=== PATIENT | male | born 1965 | race Caucasian/White ===

== ENCOUNTER → 2016-04-22 | Outpatient (CLI) | payer BC | LOC: MW.CHRC 16:32 | PROVIDERS: ATTEND Family Medicine | DX: R68.82 Decreased libido (principal) | CPT/HCPCS: 36415; 84402; 84403 ==

== ENCOUNTER 2016-04-29 21:48 | Emergency (ER) | payer BC ==
--- NOTE | 2016-04-29 22:06 | EDM.PDOC ---
ED HPI Behavioral Health - General Stated Complaint: UNKNOWN Source of Information: Reports: Patient Exam Limitations: Reports: No limitations - History of Present Illness INITIAL COMMENTS - FREE TEXT/NARRATIVE: 5History of present illness: [] Review of systems: 51-year-old male with a history of suspected bipolar disorder now brought in by with police accompaniment for evaluation of his mental health. Per [employer] called them and stated patient was "tearing up the house "and had been "drinking all day. " When police arrived the patient was alert communicative and cooperative there is no evidence of violence or damage. Patient is very clear that he had not been drinking but was willing to consent to a breathalyzer approve it. Per police alcohol level was 0.01 1/80th of the legal limit for intoxication. Patient is continued to be communicative and cooperative w no evidence of psychosis /suicidal ideation /homicidal ideation/ self injury/ self-destructive behavior /or any behavior threatening to others. Patient is currently asymptomatic HISTORY AND PHYSICAL: As per history of present illness and below otherwise all systems reviewed and negative. Past medical history: As per history of present illness and as reviewed below otherwise noncontributory. Surgical history: As per history of present illness and as reviewed below otherwise noncontributory. Social history: No reported history of drug or alcohol abuse. Family history: As per history of present illness and as reviewed below otherwise noncontributory. Physical exam: HEENT: Atraumatic, normocephalic, pupils reactive, negative for conjunctival pallor or scleral icterus, mucous membranes moist, throat clear, neck supple, nontender, trachea midline. Lungs: Clear to auscultation, breath sounds equal bilaterally, chest nontender. Heart: S1S2, regular, negative for clicks, rubs, or JVD. Abdomen: Soft, nondistended, nontender. Negative for masses or hepatosplenomegaly. Negative for costovertebral tenderness. Pelvis: Stable nontender. Genitourinary: Deferred. Rectal: Deferred. Extremities: Atraumatic, negative for cords or calf pain. Neurovascular unremarkable. Neuro: Awake, alert, oriented. Cranial nerves II through XII unremarkable. Cerebellum unremarkable. Motor and sensory unremarkable throughout. Exam nonfocal. Diagnostics: [] Therapeutics: [] Impression: [] Plan: [] Definitive disposition and diagnosis as appropriate pending reevaluation and review of above. - Related Data Allergies Allergy/AdvReac Type Severity Reaction Status Date / Time No Known Allergies Allergy Verified 04/29/16 22:18 Home Medications: Home Meds Venlafaxine [Effexor XR] 150 mg PO DAILY 04/29/16 [History] buPROPion [Wellbutrin] 100 mg PO DAILY 04/29/16 [History] no pain Pain Score (Numeric/FACES): 0 ED ROS GENERAL - Review of Systems Review Of Systems: See Below (Per history of present illness) ED EXAM, BEHAVIORAL HEALTH - Physical Exam Exam: See Below (Per history of present illness) COURSE, BEHAVIORAL HEALTH COMP - Course Vital Signs: Last Vital Signs Temp 36.8 C 04/29/16 22:06 Pulse 90 04/29/16 22:49 Resp 16 04/29/16 22:49 BP 137/81 04/29/16 22:49 Pulse Ox 98 04/29/16 22:49 Orders, Labs, Meds: Medications Discontinued Medications Generic Name Dose Route Start Last Admin Trade Name Carmine PRN Reason Stop Dose Admin Alprazolam 1 mg 04/29/16 22:26 04/29/16 22:45 Xanax PO 04/29/16 22:27 1 mg ONETIME ONE Administration Re-Assessment/Re-Exam: Patient has a history of depression however he has no suicidal ideation homicidal ideation and he does not represent an immediate danger to self or others in any way. Apparently per patient there is significant marital discord between patient and his and he feels she was not being forthright to claim he had been "drinking all day. "His statement was consistent with his negative alcohol level. Patient's had no SI at any time. He is alert appropriate communicative and calm was cooperative with the police and in the emergency department. Discussed with patient and at length that there is is no indication for emergent psychiatric evaluation and patient may followup with his primary care DrNinfa and his psychologist at home. Both agree with outpatient followup No further workup or treatment indicated. Strict return precautions given Departure - Departure Time of Disposition: 22:21 Disposition: Home, Self-Care 01 Condition: good Clinical Impression: Anxiety, Insomnia, Depression, Depressive disorder Instructions: Insomnia Referrals: Scottie Ragland MD [Primary Care Provider] - Forms: ED Summary Discharge Additional Instructions: You have a history of depression and it does not appear that your depression is currently different than what is typical for you. Continue to take your antidepressant medications. Your anxiety is making it difficult for you to sleep by your description. Take Xanax one dose as needed at bedtime for anxiety with insomnia. Do not drink alcohol in addition to this medicine as it is a sedative. Also be sure not to take narcotics at the same time as this medicine. Failure to appear to this can result in or permanent disability. Followup with your Dr. in your psychologist tomorrow morning. Return immediately if you feel that you may be a danger to yourself or others.
[2016-04-29] MEDS ORDERED: ALPRAZolam 0.25 MG Tab PO ONE (22:26)
[2016-04-29 22:52] VITALS: BP 137/81
== END 2016-04-29 22:52 | disposition home or self-care (01) ==
LOC: MW.ED 21:48
DX: F41.8 Other specified anxiety disorders (principal); Z79.899 Other long term (current) drug therapy
CPT/HCPCS: 99283; A9270

== ENCOUNTER 2019-12-03 11:24 | Inpatient (IN) | payer BC ==
[2019-12-03] MEDS ORDERED: REMDESIVIR 200 MG in Sodium Chloride 0.9% 250 ML IV ONE (12:26)
[2019-12-03] MEDS ORDERED: Albuterol/Ipratropium 4 GM Inhalation Spray INH PRN (12:50)
[2019-12-03] MEDS ORDERED: Ondansetron 4 MG Tab.DIS PO PRN (13:05)
[2019-12-03] MEDS ORDERED: Enoxaparin 40 MG/0.4 ML Syringe SUBCUT SCH (13:15)
[2019-12-03] MEDS: Dexamethasone 4 MG Tab PO SCH (13:27)
[2019-12-03] MEDS: Enoxaparin 40 MG/0.4 ML Syringe SUBCUT SCH (13:27)
--- NOTE | 2019-12-03 14:21 | PCM.HP.2 ---
H&P History of Present Illness - General Date of Service: 12/03/19 Admit Problem/Dx: Admission Diagnosis/Problem Admission Diagnosis/Problem Pneumonia Source of Information: Patient History Limitations: Reports: No Limitations - History of Present Illness Initial Comments - Free Text/Narative: Pt is a 54 y/o gentleman with a PMHx of HLD, hypothyroidism and anxiety and depression, was a direct admit from the respiratory clinic with concerns for shortness of breath and desaturation on room air in the 80's. Says that his symptoms began 3-4 days ago when he had a fever, chills, cough, s.o.b and myalgia. States that most of the associated symptoms have resolved, but the cough and s.o.b persist. States that it has made it difficult for him to sleep, he has tried using antitussive OTC medications which have not helped.States his symptoms are made worst with activity and laying down, better with rest. Denies any associated nausea, vomiting, diarrhea, abdominal pain, fever, chills, body aches, change in appetite, change in taste or smell. Shares that his daughter recently tested positive for Covid 19 over a week ago and was only experiencing flu like symptoms. Onset of Symptoms: Reports: Gradual (since 3-4 days) Location: Reports: Chest Context: Reports: Sick Contact (daughter has COVID ) Associated Symptoms: Reports: Cough, cough w sputum, Shortness of Breath - Related Data Allergies/Adverse Reactions: Allergies Allergy/AdvReac Type Severity Reaction Status Date / Time No Known Allergies Allergy Verified 12/03/19 12:15 Home Medications: Home Meds ARIPiprazole [Abilify] 15 mg PO BEDTIME 12/03/19 [History] DULoxetine [Cymbalta] 60 mg PO DAILY 12/03/19 [History] Levothyroxine Sodium [Synthroid] 100 mcg PO ACBREAKFAST 12/03/19 [History] atorvaSTATin [Lipitor] 20 mg PO DAILY 12/03/19 [History] Past Medical History Cardiovascular History: Reports: High Cholesterol Other Cardiovascular History: "being worked up for blood clot in right calf" Musculoskeletal History: Reports: Arthritis Psychiatric History: Reports: Anxiety, Depression Endocrine/Metabolic History: Reports: Hypothyroidism - Past Surgical History HEENT Surgical History: Reports: Tonsillectomy Cardiovascular Surgical History: Reports: None Endocrine Surgical History: Reports: None Musculoskeletal Surgical History: Reports: None Social & Family History - Family History Family Medical History: Noncontributory - Tobacco Use Tobacco Use Status *Q: Never Tobacco User Second Hand Smoke Exposure: No - Caffeine Use Caffeine Use: Reports: Coffee - Recreational Drug Use Recreational Drug Use: No H&P Review of Systems - Review of Systems: Review Of Systems: See Below General: Reports: No Symptoms HEENT: Reports: No Symptoms Pulmonary: Reports: Shortness of Breath, Cough Cardiovascular: Reports: No Symptoms Gastrointestinal: Reports: No Symptoms Genitourinary: Reports: No Symptoms Musculoskeletal: Reports: No Symptoms Skin: Reports: No Symptoms Psychiatric: Reports: No Symptoms Neurological: Reports: No Symptoms Hematologic/Lymphatic: Reports: No Symptoms Immunologic: Reports: No Symptoms Exam - Exam Exam: See Below - Vital Signs Vital Signs: Last Vital Signs Temp 99.9 F 12/03/19 11:45 Pulse 97 12/03/19 11:45 Resp 20 12/03/19 11:45 BP 139/72 12/03/19 11:45 Pulse Ox 92 L 12/03/19 13:06 Weight: 307 lb 3.2 oz - Exam Quality Assessment: Supplemental Oxygen, DVT Prophylaxis General: Alert, Oriented, Cooperative, Mild Distress HEENT: Conjunctiva Clear, EACs Clear, EOMI, Mucosa Moist & [place]al[place], Nares Patent, Pupils Equal, Pupils Reactive, PERRLA Neck: Supple, Trachea Midline, +2 Carotid Pulse wo Bruit. No: Lymphadenopathy, Carotid Bruit, JVD, Thyromegaly Lungs: Clear to Auscultation, Normal Respiratory Effort, Decreased Breath Sounds (in lower lobes bilaterally) Cardiovascular: Regular Rate, Regular Rhythm, Normal S1, Normal S2 GI/Abdominal Exam: Normal Bowel Sounds, Soft, Non-Tender, No Organomegaly Extremities: Normal Inspection, Normal Range of Motion, No Pedal Edema, Normal Capillary Refill Peripheral Pulses: 2+: Dorsalis Pedis (L), Dorsalis Pedis (R) Skin: Warm, Dry, Intact Neurological: Cranial Nerves Intact, Reflexes Equal Bilateral Neuro Extensive - Mental Status: Alert, Oriented x3, Normal Mood/Affect, Normal Cognition, Memory Intact Neuro Extensive - Motor, Sensory, Reflexes: CN II-XII Intact, Normal Gait, Normal Reflexes Psychiatric: Alert, Normal Affect, Normal Mood - Patient Data Lab Results Last 24 hrs: Laboratory Results - last 24 hr 12/03/19 Range/Units 10:05 INR 1.06 Sepsis Event Note - Evaluation Sepsis Screening Result: No Definite Risk - Focused Exam Vital Signs: Vital Signs Temp Pulse Resp BP Pulse Ox Pulse Ox 12/03/19 13:06 92 L 12/03/19 11:45 99.9 F 97 20 139/72 93 L - Problem List (1) Acute respiratory failure due to COVID-19 SNOMED Code(s): 843196497 ICD Code: U07.1 - COVID-19; J96.00 - ACUTE RESPIRATORY FAILURE, UNSP W HYPOXIA OR HYPERCAPNIA Status: Acute Current Visit: Yes (2) Hyperlipemia SNOMED Code(s): 65560701 ICD Code: E78.5 - HYPERLIPIDEMIA, UNSPECIFIED Status: Chronic Current Visit: Yes (3) Hypothyroidism SNOMED Code(s): 33522765 ICD Code: E03.9 - HYPOTHYROIDISM, UNSPECIFIED Status: Chronic Current Visit: Yes (4) Hyponatremia SNOMED Code(s): 31924030 ICD Code: E87.1 - HYPO-OSMOLALITY AND HYPONATREMIA Status: Acute Current Visit: Yes (5) Hypochloremia SNOMED Code(s): 05371018 ICD Code: E87.8 - OTH DISORDERS OF ELECTROLYTE AND FLUID BALANCE, NEC Status: Acute Current Visit: Yes (6) Anxiety SNOMED Code(s): 33090599 ICD Code: F41.9 - ANXIETY DISORDER, UNSPECIFIED Status: Chronic Current Visit: No (7) Depression SNOMED Code(s): 90240216 ICD Code: F32.9 - MAJOR DEPRESSIVE DISORDER, SINGLE EPISODE, UNSPECIFIED Status: Chronic Current Visit: No Problem List Initiated/Reviewed/Updated: Yes Orders Last 24hrs: Active Orders 24 hr Category Date Time Status Admission Status [Patient Status] [ADT] Routine ADT 12/03/19 12:25 Active Patient Status [ADT] Routine ADT 12/03/19 13:06 Active Antiembolic Devices [RC] PER UNIT ROUTINE Care 12/03/19 13:12 Active IS (RT) [RT Incentive Spirometry] [RC] ASDIRECTED Care 12/03/19 13:20 Active Oxygen Therapy [RC] PRN Care 12/03/19 13:06 Active Pulse Oximetry [RC] CONTINUOUS Care 12/03/19 13:08 Active RT Post Treatment Assessment [RC] Click to Edit Care 12/03/19 13:03 Active RT Pre-Treatment Assessment [RC] Click to Edit Care 12/03/19 13:03 Active VTE/DVT Education [RC] PER UNIT ROUTINE Care 12/03/19 13:06 Active Vital Signs [RC] Q4H Care 12/03/19 13:06 Active Respiratory Care Assess and Treatment [CONS] Routine Cons 12/03/19 13:05 Active Heart Healthy Diet [DIET] Diet 12/03/19 Lunch Active CTA Chest W WO Contrast [Ang Chest] [CT] Stat Exams 12/03/19 12:45 Ordered BASIC METABOLIC PANEL,BMP [CHEM] AM Lab 12/04/19 05:11 Ordered CBC WITH AUTO DIFF [HEME] AM Lab 12/04/19 05:11 Ordered Albuterol/Ipratropium [Combivent Respimat] Med 12/03/19 12:50 Active 2 gm INH Q4H PRN Enoxaparin [Lovenox] Med 12/03/19 12:30 Active 40 mg SUBCUT Q24H Ondansetron [Zofran ODT] Med 12/03/19 13:05 Active 4 mg PO Q4H PRN Pantoprazole [ProTONIX IV] 40 mg Med 12/03/19 13:15 Active Sodium Chloride 0.9% [Normal Saline] 10 ml IV Q24H Remdesivir (Eua) [Remdesivir (EUA)] 100 mg Med 12/04/19 12:30 Active Sodium Chloride 0.9% [Normal Saline] 100 ml IV Q24H dexAMETHasone Med 12/03/19 12:30 Active 6 mg PO DAILY Sequential Compression Device [OM.PC] Per Unit Routine Oth 12/03/19 13:11 Orde red Resuscitation Status Routine Resus Stat 12/03/19 13:05 Ordered Medication Orders Albuterol/Ipratropium (Combivent Respimat) 2 gm INH Q4H PRN PRN Reason: Dyspnea Dexamethasone (Dexamethasone) 6 mg PO DAILY NEETU Last Admin: 12/03/19 13:27 Dose: 6 mg Documented by: JUSTO Enoxaparin Sodium (Lovenox) 40 mg SUBCUT Q24H NEETU Last Admin: 12/03/19 13:27 Dose: 40 mg Documented by: JUSTO Remdesivir 100 mg/ Sodium (Chloride) 100 mls @ 100 mls/hr IV Q24H NEETU Stop: 12/07/19 13:29 Pantoprazole Sodium 40 mg/ (Sodium Chloride) 10 mls @ 300 mls/hr IV Q24H NEETU Ondansetron HCl (Zofran Odt) 4 mg PO Q4H PRN PRN Reason: nausea, able to take PO Assessment/Plan Comment:: Pt is a 54 y/o Gentleman admitted for Acute Hypoxic Respiratory Failure secondary to COVID 19. 1. COVID: supplemental O2 with goal of O2 sats 92%>. Combivent, dexamethasone 6mg daily PO for 10 days, IS, acapella. -Remdesivir started , Pt understood risk/benefits/ fact sheet provided/ pt provided consent. Started 250, next 4 days 100mg daily. -Pt understood risk/benefit of convalescent plasma, provided written consent, will transfuse with 1 unit today. Followed by 1 unit tomorrow. -Lovenox 40 sub Q daily for DVT ppx, VICENTA stockings -GI ppx 40mg IV daily -Elevated D-dimer, got CTA -chest X-Ray diffuse airspace disease on left and lesser on right side, consistent with pneumonia. 2.Mild Hyponatremia: 131, pt asymptomatic, will continue to trend with daily labs cmp. 3.Mild Hypochloremia: 97, pt asymptomatic, will continue to trend with daily labs cmp. 4.Hyperlidemia: heart healthy diet, continue pt on home dose of Atorvastatin 5.PMHx of HLD, Hypothyroidism, anxiety, depression; continue patient on home dose of medications . 6. up ad poly activity,
[2019-12-03] MEDS: Pantoprazole 40 MG in Sodium Chloride 0.9% 10 ML IV SCH (14:41)
[2019-12-03] MEDS ORDERED: Albuterol/Ipratropium 4 GM Inhalation Spray INH SCH (15:15)
[2019-12-03] MEDS ORDERED: Iopamidol 755 MG/ML 500 ML Multipack Bottle IVPUSH STA (16:31)
[2019-12-03] MEDS: Albuterol/Ipratropium 4 GM Inhalation Spray INH SCH ×2 (17:58→21:54)
[2019-12-03] MEDS ORDERED: Albuterol/Ipratropium 3.0-0.5 MG/3 ML Neb Soln NEB SCH (18:00)
[2019-12-03] MEDS ORDERED: Levofloxacin/Dextrose 5%-Water 750 MG in Premix Bag 1 BAG IV SCH (19:00)
[2019-12-03] MEDS ORDERED: ARIPiprazole 10 MG Tab PO SCH (21:00)
[2019-12-04] MEDS: Albuterol/Ipratropium 4 GM Inhalation Spray INH SCH ×4 (02:02→13:15)
--- NOTE | 2019-12-04 03:37 | PN ---
THC Physician - Brief Progress [id number]/27/2020 03:08[facility] Miguel Machado, [facility] - MWN NILSA RAMOSDate of Service 12/04/2019 03:08HPI/Events of Note Case discussed with RN. 54 year old M admitted with fever/SOB/hypoxia, and found to be positiv e for COVID. Treated with bronchodilators/remdesivir/plasma/decadron/abx. On BIPAP for resp support .HR 80s SBP 120s 92%Recs include: hemodynamic monitoring, BiPAP PRN, encourage self proning, rem desivir/decadron/abx, GI and DVT prophylaxis, follow cultures, trend LA, replace lytes as needed, gly cemic monitoring, pain control, neuro checks.Interventions Minor-Communication with other healthcare providers and/or family
[2019-12-04 06:44] LABS: BLOOD UREA NITROGEN,BUN 16 mg/dL (7.0-18.0); CHLORIDE,CL 100 mmol/L (98-107); GLUCOSE RANDOM 141 mg/dL (74-106); POTASSIUM,K 4.6 mmol/L (3.5-5.1); SODIUM,NA 137 mmol/L (136-148)
[2019-12-04] MEDS ORDERED: Levothyroxine 100 MCG Tab PO SCH (07:30)
[2019-12-04] MEDS: Dexamethasone 4 MG Tab PO SCH (08:39)
[2019-12-04] MEDS ORDERED: DULoxetine 60 MG Cap PO SCH (09:00)
[2019-12-04] MEDS ORDERED: atorvaSTATin 20 MG Tab PO SCH (09:00)
--- NOTE | 2019-12-04 10:17 | CT ---
INDICATION: Elevated D-dimer positive for garcia virus infection TECHNIQUE: Volumetric, multi detector CT images of the chest were obtained after administration of 75 cc Isovue 370 using an angiographic protocol. COMPARISON: None. FINDINGS: Thoracic inlet: The thoracic inlet is grossly unremarkable. Thoracic aorta: The thoracic aorta is non aneurysmal without evidence of central filling defect. Pulmonary arteries: There is no definite central filling defect to suggest pulmonary embolus however there is mildly limited opacification of the distal most pulmonary arteries. Mediastinum: There are calcified mediastinal and hilar lymph nodes with likely scattered reactive mediastinal lymph nodes. Trachea and airways: The trachea is patent with otherwise well aerated proximal bronchi. Lungs: There are extensive ground-glass opacities predominantly in the peripheral upper greater than lower lobes and left greater than right hemithoraces commensurate with evolving atypical viral infectious changes. There is no significant pleural effusion or pneumothorax. Upper abdomen: The partially visualized upper abdominal viscera are grossly unremarkable. Thoracic spine: The thoracic vertebral body heights are maintained with minimal endplate Schmorl`s defects and mild straightening of the normal thoracic kyphosis. There is no significant spondylolisthesis or acute osseous abnormality. There is no evidence of lytic or blastic lesion. IMPRESSION: No evidence of pulmonary embolus. Mildly limited exam due to contrast bolus timing. Otherwise, extensive ground-glass opacity of the upper greater than lower lobes, left greater than right commensurate with evolving inflammatory changes secondary to viral pneumonitis. Please note that all CT scans at this facility use dose modulation, iterative reconstruction, and/or weight-based dosing when appropriate to reduce radiation dose to as low as reasonably achievable. Dictated by Josh Salinas MD @ Dec 03 2019 4:31PM Signed by Dr. Josh Salinas @ Dec 03 2019 4:36PM
[2019-12-04] MEDS: Enoxaparin 40 MG/0.4 ML Syringe SUBCUT SCH (11:43)
[2019-12-04] MEDS ORDERED: REMDESIVIR 100 MG in Sodium Chloride 0.9% 100 ML IV SCH (12:30)
[2019-12-04] MEDS: Pantoprazole 40 MG in Sodium Chloride 0.9% 10 ML IV SCH (13:25)
--- NOTE | 2019-12-04 13:43 | PCM.PN ---
- General Info Date of Service: 12/04/19 - Patient Data Vitals - Most Recent: Last Vital Signs Temp 98.2 F 12/04/19 12:00 Pulse 90 12/03/19 19:34 Resp 35 H 12/04/19 12:00 BP 123/73 12/04/19 12:00 Pulse Ox 94 L 12/04/19 12:00 Weight - Most Recent: 303 lb 0.406 oz I&O - Last 24 Hours: Intake & Output 12/03/19 12/04/19 12/04/19 22:59 06:59 14:59 Intake Total 1487 840 Output Total 1979 Balance 1487 -1140 Lab Results Last 24 Hours: Laboratory Results - last 24 hr 12/03/19 12/03/19 12/04/19 Range/Units 15:55 15:55 06:00 WBC 5.15 (4.0-11.0) K/uL RBC 4.27 L (4.50-5.90) M/uL Hgb 13.7 (13.0-17.0) g/dL Hct 41.5 (38.0-50.0) % MCV 97.2 (80.0-98.0) fL MCH 32.1 H (27.0-32.0) pg MCHC 33.0 (31.0-37.0) g/dL RDW Std Deviation 45.8 (28.0-62.0) fl RDW Coeff of Tim 13 (11.0-15.0) % Plt Count 133 L (150-400) K/uL MPV 11.00 (7.40-12.00) fL Neut % (Auto) 83.9 H (48.0-80.0) % Lymph % (Auto) 8.9 L (16.0-40.0) % [place] % (Auto) 7.2 (0.0-15.0) % Eos % (Auto) 0.0 (0.0-7.0) % Baso % (Auto) 0.0 (0.0-1.5) % Neut # (Auto) 4.3 (1.4-5.7) K/uL Lymph # (Auto) 0.5 L (0.6-2.4) K/uL [place] # (Auto) 0.4 (0.0-0.8) K/uL Eos # (Auto) 0.0 (0.0-0.7) K/uL Baso # (Auto) 0.0 (0.0-0.1) K/uL Nucleated RBC % 0.0 /100WBC Nucleated RBCs # 0 K/uL APTT 33.9 H (18.6-31.3) SEC Sodium (136-148) mmol/L Potassium (3.5-5.1) mmol/L Chloride (98-107) mmol/L Carbon Dioxide (21.0-32.0) mmol/L BUN (7.0-18.0) mg/dL Creatinine (0.8-1.3) mg/dL Est Cr Clr Drug Dosing mL/min Estimated GFR (MDRD) ml/min Glucose (74-106) mg/dL Calcium (8.5-10.1) mg/dL Phosphorus (2.6-4.7) mg/dL Magnesium (1.8-2.4) mg/dL Blood Type O POSITIVE Antibody Screen NEGATIVE 12/04/19 Range/Units 06:00 WBC (4.0-11.0) K/uL RBC (4.50-5.90) M/uL Hgb (13.0-17.0) g/dL Hct (38.0-50.0) % MCV (80.0-98.0) fL MCH (27.0-32.0) pg MCHC (31.0-37.0) g/dL RDW Std Deviation (28.0-62.0) fl RDW Coeff of Tim (11.0-15.0) % Plt Count (150-400) K/uL MPV (7.40-12.00) fL Neut % (Auto) (48.0-80.0) % Lymph % (Auto) (16.0-40.0) % [place] % (Auto) (0.0-15.0) % Eos % (Auto) (0.0-7.0) % Baso % (Auto) (0.0-1.5) % Neut # (Auto) (1.4-5.7) K/uL Lymph # (Auto) (0.6-2.4) K/uL [place] # (Auto) (0.0-0.8) K/uL Eos # (Auto) (0.0-0.7) K/uL Baso # (Auto) (0.0-0.1) K/uL Nucleated RBC % /100WBC Nucleated RBCs # K/uL APTT (18.6-31.3) SEC Sodium 137 (136-148) mmol/L Potassium 4.6 (3.5-5.1) mmol/L Chloride 100 (98-107) mmol/L Carbon Dioxide 30.0 (21.0-32.0) mmol/L BUN 16 (7.0-18.0) mg/dL Creatinine 1.1 (0.8-1.3) mg/dL Est Cr Clr Drug Dosing 85.75 mL/min Estimated GFR (MDRD) > 60.0 ml/min Glucose 141 H (74-106) mg/dL Calcium 8.3 L (8.5-10.1) mg/dL Phosphorus 3.7 (2.6-4.7) mg/dL Magnesium 2.3 (1.8-2.4) mg/dL Blood Type Antibody Screen Med Orders - Current: Current Medications Albuterol/Ipratropium (Combivent Respimat) 0 gm INH Q4HRRT [facility] Last Admin: 12/04/19 13:15 Dose: 1 puff Documented by: Aripiprazole (Abilify) 15 mg PO BEDTIME [facility] Last Admin: 12/03/19 20:30 Dose: 15 mg Documented by: Atorvastatin Calcium (Lipitor) 20 mg PO DAILY [facility] Last Admin: 12/04/19 08:38 Dose: 20 mg Documented by: Dexamethasone (Dexamethasone) 6 mg PO DAILY [facility] Last Admin: 12/04/19 08:39 Dose: 6 mg Documented by: Duloxetine HCl (Cymbalta) 60 mg PO DAILY [facility] Last Admin: 12/04/19 08:38 Dose: 60 mg Documented by: Enoxaparin Sodium (Lovenox) 40 mg SUBCUT Q24H [facility] Last Admin: 12/04/19 11:43 Dose: 40 mg Documented by: Furosemide (Lasix) 20 mg IVPUSH ONETIME ONE Stop: 12/04/19 14:01 Remdesivir 100 mg/ Sodium (Chloride) 100 mls @ 100 mls/hr IV Q24H [facility] Stop: 12/07/19 13:29 Last Admin: 12/04/19 11:44 Dose: 100 mls/hr Documented by: Pantoprazole Sodium 40 mg/ (Sodium Chloride) 10 mls @ 300 mls/hr IV Q24H [facility] Last Admin: 12/04/19 13:25 Dose: 300 mls/hr Documented by: Levofloxacin/Dextrose 750 mg/ (Premix) 150 mls @ 100 mls/hr IV Q24H [facility] Last Admin: 12/03/19 19:51 Dose: 100 mls/hr Documented by: Levothyroxine Sodium (Synthroid) 100 mcg PO ACBREAKFAST [facility] Last Admin: 12/04/19 11:43 Dose: 100 mcg Documented by: Ondansetron HCl (Zofran Odt) 4 mg PO Q4H PRN PRN Reason: nausea, able to take PO Discontinued Medications Albuterol/Ipratropium (Combivent Respimat) 2 gm INH Q4H PRN PRN Reason: Dyspnea Last Admin: 12/03/19 14:39 Dose: 1 puff Documented by: Albuterol/Ipratropium (Duoneb 3.0-0.5 Mg/3 Ml) 3 ml NEB Q4HRRT [facility] Albuterol/Ipratropium (Combivent Respimat) 2 gm INH Q4H [facility] Last Admin: 12/03/19 16:37 Dose: Not Given Documented by: Remdesivir 200 mg/ Sodium (Chloride) 250 mls @ 250 mls/hr IV ONETIME ONE Stop: 12/03/19 12:27 Last Admin: 12/03/19 13:25 Dose: 250 mls/hr Documented by: Furosemide 20 mg/ Sodium (Chloride) 52 mls @ 100 mls/hr IV ASDIRECTED ONE Stop: 12/04/19 16:01 Iopamidol (Isovue Multipack-370 (76%)) 75 ml IVPUSH ONETIME STA Stop: 12/03/19 16:32 Last Admin: 12/03/19 16:35 Dose: 75 ml Documented by: Sepsis Event Note - Evaluation Sepsis Screening Result: No Definite Risk - Focused Exam Vital Signs: Vital Signs Temp Resp BP Pulse Ox 12/04/19 12:00 98.2 F 35 H 123/73 94 L 12/04/19 11:00 98.4 F 44 H 125/73 95 12/04/19 10:00 98.4 F 37 H 118/74 92 L 12/04/19 09:00 98.4 F 28 H 123/72 95 12/04/19 08:00 98.4 F 22 H 123/72 94 L 12/04/19 06:00 22 H 112/91 H 93 L 12/04/19 05:00 24 H 126/83 95 12/04/19 04:00 98.1 F 31 H 124/80 92 L 12/04/19 03:00 27 H 121/73 93 L 12/04/19 02:00 23 H 134/77 92 L - Problem List & Annotations (1) Acute respiratory failure due to COVID-19 SNOMED Code(s): 246094007 Code(s): U07.1 - COVID-19; J96.00 - ACUTE RESPIRATORY FAILURE, UNSP W HYPOXIA OR HYPERCAPNIA Status: Acute Current Visit: Yes (2) Hyperlipemia SNOMED Code(s): 96092056 Code(s): E78.5 - HYPERLIPIDEMIA, UNSPECIFIED Status: Chronic Current Visit: Yes (3) Hypothyroidism SNOMED Code(s): 30821775 Code(s): E03.9 - HYPOTHYROIDISM, UNSPECIFIED Status: Chronic Current Visit: Yes (4) Hyponatremia SNOMED Code(s): 86915621 Code(s): E87.1 - HYPO-OSMOLALITY AND HYPONATREMIA Status: Acute Current Visit: Yes (5) Hypochloremia SNOMED Code(s): 90799110 Code(s): E87.8 - OTH DISORDERS OF ELECTROLYTE AND FLUID BALANCE, NEC Status: Acute Current Visit: Yes (6) Anxiety SNOMED Code(s): 99299749 Code(s): F41.9 - ANXIETY DISORDER, UNSPECIFIED Status: Chronic Current Visit: No (7) Depression SNOMED Code(s): 38242688 Code(s): F32.9 - MAJOR DEPRESSIVE DISORDER, SINGLE EPISODE, UNSPECIFIED Status: Chronic Current Visit: No - My Orders Last 24 Hours: My Active Orders 12/03/19 13:03 RT Post Treatment Assessment [RC] Click to Edit RT Pre-Treatment Assessment [RC] Click to Edit 12/03/19 13:05 Respiratory Care Assess and Treatment [CONS] Routine Ondansetron [Zofran ODT] 4 mg PO Q4H PRN Resuscitation Status Routine 12/03/19 13:06 Patient Status [ADT] Routine Oxygen Therapy [RC] PRN VTE/DVT Education [RC] PER UNIT ROUTINE Vital Signs [RC] Q1H 12/03/19 13:11 Sequential Compression Device [OM.PC] Per Unit Routine 12/03/19 13:12 Antiembolic Devices [RC] PER UNIT ROUTINE 12/03/19 13:15 Pantoprazole [ProTONIX IV] 40 mg Sodium Chloride 0.9% [Normal Saline] 10 ml IV Q24H 12/03/19 13:20 IS (RT) [RT Incentive Spirometry] [RC] ASDIRECTED 12/03/19 14:58 RT Aerosol Therapy [RC] ASDIRECTED 12/03/19 15:34 Transfuse Fresh Frozen Plasma [COMM] Routine 12/03/19 15:55 FRESH FROZEN PLASMA [BBK] Routine TYPE AND SCREEN [BBK] Routine 12/03/19 18:00 Albuterol/Ipratropium [Combivent Respimat] 0 gm INH Q4HRRT 12/03/19 18:44 BIPAP [RT BiPAP/CPAP] [RC] ASDIRECTED 12/03/19 19:00 Levofloxacin/Dextrose 5%-Water [Levaquin in D5W 750 MG/150 ML] 750 mg Premix Bag 1 bag IV Q24H 12/03/19 21:00 ARIPiprazole [Abilify] 15 mg PO BEDTIME 12/04/19 07:30 Levothyroxine [Synthroid] 100 mcg PO ACBREAKFAST 12/04/19 09:00 DULoxetine [Cymbalta] 60 mg PO DAILY atorvaSTATin [Lipitor] 20 mg PO DAILY 12/04/19 13:14 Transfuse Fresh Frozen Plasma [COMM] Urgent - Plan Plan:: Pt is a 54 y/o Gentleman admitted for Acute Hypoxic Respiratory Failure secondary to COVID 19. 1. COVID: supplemental O2 with goal of O2 sats 92%>. Combivent, dexamethasone 6mg daily PO for 10 days, IS, acapella. -Remdesivir started , Pt understood risk/benefits/ fact sheet provided/ pt provided consent. Started 250, next 4 days 100mg daily. -Pt understood risk/benefit of convalescent plasma, provided written consent, will transfuse with 1 unit today. Followed by 1 unit tomorrow. -Lovenox 40 sub Q daily for DVT ppx, VICENTA stockings -GI ppx 40mg IV daily -Elevated D-dimer, got CTA -chest X-Ray diffuse airspace disease on left and lesser on right side, consistent with pneumonia. 2.Mild Hyponatremia: 131, pt asymptomatic, will continue to trend with daily labs cmp. 3.Mild Hypochloremia: 97, pt asymptomatic, will continue to trend with daily labs cmp. 4.Hyperlidemia: heart healthy diet, continue pt on home dose of Atorvastatin 5.PMHx of HLD, Hypothyroidism, anxiety, depression; continue patient on home dose of medications . 6. up ad poly activity,
[2019-12-04] MEDS ORDERED: Furosemide 20 MG/2 ML VIAL IVPUSH ONE (14:00)
[2019-12-04] MEDS ORDERED: fentaNYL 100 MCG/2 ML SDV ONE (14:11)
[2019-12-04] MEDS ORDERED: Propofol 200 MG/20 ML SDV ONE (14:11)
[2019-12-04] MEDS ORDERED: Midazolam 1 MG/ML 2 ML SDV ONE (14:11)
[2019-12-04] MEDS ORDERED: propofoL 100 ML ONE ×2 (14:12→16:07)
[2019-12-04] MEDS ORDERED: Succinylcholine/Sod PF 100 MG/5 ML SYRINGE IV ONE (14:22)
[2019-12-04] MEDS ORDERED: Rocuronium Bromide 50 MG/5 ML Syringe ONE (14:22)
--- NOTE | 2019-12-04 15:01 | PCM.DCSUM1 ---
<Rebeka Eldridge - Last Filed: 12/04/19 15:28> Discharge Summary - Hospital Course Brief History: Pt is a 54 y/o gentleman with a PMHx of HLD, hypothyroidism and anxiety and depression, was a direct admit from the respiratory clinic with concerns for shortness of breath and desaturation on room air in the 80's. Says that his symptoms began 3-4 days ago when he had a fever, chills, cough, s.o.b and myalgia. States that most of the associated symptoms have resolved, but the cough and s.o.b persist. States that it has made it difficult for him to sleep, he has tried using antitussive OTC medications which have not helped.States his symptoms are made worst with activity and laying down, better with rest. Denies any associated nausea, vomiting, diarrhea, abdominal pain, fever, chills, body aches, change in appetite, change in taste or smell. Shares that his daughter recently tested positive for Covid 19 over a week ago and was only experiencing flu like symptoms. Onset of Symptoms: Reports: Gradual (since 3-4 days) Diagnosis: Stroke: No - Discharge Data Discharge Date: 12/04/19 Discharge Disposition: DC/Tfer to Acute Hospital 02 Preliminary Cause of *Q: Respiratory Failure Condition: Critical - Referral to Home Health Primary Care Physician: Ananda Carreon MD - Discharge Diagnosis/Problem(s) (1) Acute respiratory failure due to COVID-19 SNOMED Code(s): 811119016 ICD Code: U07.1 - COVID-19; J96.00 - ACUTE RESPIRATORY FAILURE, UNSP W HYPOXIA OR HYPERCAPNIA Status: Acute (2) Hyperlipemia SNOMED Code(s): 19922676 ICD Code: E78.5 - HYPERLIPIDEMIA, UNSPECIFIED Status: Chronic (3) Hypothyroidism SNOMED Code(s): 27513014 ICD Code: E03.9 - HYPOTHYROIDISM, UNSPECIFIED Status: Chronic (4) Hyponatremia SNOMED Code(s): 79294020 ICD Code: E87.1 - HYPO-OSMOLALITY AND HYPONATREMIA Status: Acute (5) Hypochloremia SNOMED Code(s): 84052508 ICD Code: E87.8 - OTH DISORDERS OF ELECTROLYTE AND FLUID BALANCE, NEC Status: Acute (6) Anxiety SNOMED Code(s): 49672209 ICD Code: F41.9 - ANXIETY DISORDER, UNSPECIFIED Status: Chronic (7) Depression SNOMED Code(s): 89042361 ICD Code: F32.9 - MAJOR DEPRESSIVE DISORDER, SINGLE EPISODE, UNSPECIFIED Status: Chronic - Patient Summary/Data Consults: Consultations 12/03/19 13:05 Respiratory Care Assess and Treatment [CONS] Routine Hospital Course: Pt is a 54 y/o gentleman who was a direct admit to from the respiratory clinic. Was sating in the 80's on R.A. Admitted on 2L nasal cannula. Quickly requiring 15 L high flow. Transitioned yesterday afternoon to the ICU on BIPAP FiO2 70% 11/11. Received 2 doses of Remdesivir, was transfused with 2 Units FFP with Covid Convalescent Plasma. Pt has been on BIPAP over 20 hrs, with FiO2 80% 25/01, with RR- 30-40's, with desaturations in the 80's when he falls asleep. Pt was starting to tire out, also wanted to avoid him further de-escalating. Therefore, decision was made to intubate. Pt was made aware of plan, he agreed. His was also notified pre- and post procedure. We are grateful that Dr. Avalos has accepted his care at [facility] in [place], [place]. - Discharge Plan *PRESCRIPTION DRUG MONITORING PROGRAM REVIEWED*: No *COPY OF PRESCRIPTION DRUG MONITORING REPORT IN PATIENT BETH: No Home Medications: Home Meds ARIPiprazole [Abilify] 15 mg PO BEDTIME 12/03/19 [History] Aspirin [Low Dose Aspirin EC] 81 mg PO DAILY 12/03/19 [History] DULoxetine [Cymbalta] 60 mg PO DAILY 12/03/19 [History] Levothyroxine Sodium [Synthroid] 100 mcg PO ACBREAKFAST 12/03/19 [History] atorvaSTATin [Lipitor] 20 mg PO DAILY 12/03/19 [History] Referrals: Ananda Carreon MD [Primary Care Provider] - - Discharge Summary/Plan Comment DC Time >30 min.: Yes - Patient Data Vitals - Most Recent: Last Vital Signs Temp 98.1 F 12/04/19 14:40 Pulse 89 12/04/19 14:40 Resp 30 H 12/04/19 14:40 BP 121/72 12/04/19 14:40 Pulse Ox 90 L 12/04/19 14:40 Weight - Most Recent: 137.45 kg I&O - Last 24 hours: Intake & Output 12/04/19 12/04/19 12/04/19 06:59 14:59 22:59 Intake Total 840 249 Output Total 1979 Balance -1140 249 Lab Results - Last 24 hrs: Laboratory Results - last 24 hr 12/03/19 12/03/19 12/04/19 Range/Units 15:55 15:55 06:00 WBC 5.15 (4.0-11.0) K/uL RBC 4.27 L (4.50-5.90) M/uL Hgb 13.7 (13.0-17.0) g/dL Hct 41.5 (38.0-50.0) % MCV 97.2 (80.0-98.0) fL MCH 32.1 H (27.0-32.0) pg MCHC 33.0 (31.0-37.0) g/dL RDW Std Deviation 45.8 (28.0-62.0) fl RDW Coeff of Tim 13 (11.0-15.0) % Plt Count 133 L (150-400) K/uL MPV 11.00 (7.40-12.00) fL Neut % (Auto) 83.9 H (48.0-80.0) % Lymph % (Auto) 8.9 L (16.0-40.0) % [place] % (Auto) 7.2 (0.0-15.0) % Eos % (Auto) 0.0 (0.0-7.0) % Baso % (Auto) 0.0 (0.0-1.5) % Neut # (Auto) 4.3 (1.4-5.7) K/uL Lymph # (Auto) 0.5 L (0.6-2.4) K/uL [place] # (Auto) 0.4 (0.0-0.8) K/uL Eos # (Auto) 0.0 (0.0-0.7) K/uL Baso # (Auto) 0.0 (0.0-0.1) K/uL Nucleated RBC % 0.0 /100WBC Nucleated RBCs # 0 K/uL APTT 33.9 H (18.6-31.3) SEC Sodium (136-148) mmol/L Potassium (3.5-5.1) mmol/L Chloride (98-107) mmol/L Carbon Dioxide (21.0-32.0) mmol/L BUN (7.0-18.0) mg/dL Creatinine (0.8-1.3) mg/dL Est Cr Clr Drug Dosing mL/min Estimated GFR (MDRD) ml/min Glucose (74-106) mg/dL Calcium (8.5-10.1) mg/dL Phosphorus (2.6-4.7) mg/dL Magnesium (1.8-2.4) mg/dL Blood Type O POSITIVE Antibody Screen NEGATIVE 12/04/19 Range/Units 06:00 WBC (4.0-11.0) K/uL RBC (4.50-5.90) M/uL Hgb (13.0-17.0) g/dL Hct (38.0-50.0) % MCV (80.0-98.0) fL MCH (27.0-32.0) pg MCHC (31.0-37.0) g/dL RDW Std Deviation (28.0-62.0) fl RDW Coeff of Tim (11.0-15.0) % Plt Count (150-400) K/uL MPV (7.40-12.00) fL Neut % (Auto) (48.0-80.0) % Lymph % (Auto) (16.0-40.0) % [place] % (Auto) (0.0-15.0) % Eos % (Auto) (0.0-7.0) % Baso % (Auto) (0.0-1.5) % Neut # (Auto) (1.4-5.7) K/uL Lymph # (Auto) (0.6-2.4) K/uL [place] # (Auto) (0.0-0.8) K/uL Eos # (Auto) (0.0-0.7) K/uL Baso # (Auto) (0.0-0.1) K/uL Nucleated RBC % /100WBC Nucleated RBCs # K/uL APTT (18.6-31.3) SEC Sodium 137 (136-148) mmol/L Potassium 4.6 (3.5-5.1) mmol/L Chloride 100 (98-107) mmol/L Carbon Dioxide 30.0 (21.0-32.0) mmol/L BUN 16 (7.0-18.0) mg/dL Creatinine 1.1 (0.8-1.3) mg/dL Est Cr Clr Drug Dosing 85.75 mL/min Estimated GFR (MDRD) > 60.0 ml/min Glucose 141 H (74-106) mg/dL Calcium 8.3 L (8.5-10.1) mg/dL Phosphorus 3.7 (2.6-4.7) mg/dL Magnesium 2.3 (1.8-2.4) mg/dL Blood Type Antibody Screen Med Orders - Current: Current Medications Albuterol/Ipratropium (Combivent Respimat) 0 gm INH Q4HRRT [facility] Last Admin: 12/04/19 13:15 Dose: 1 puff Documented by: Aripiprazole (Abilify) 15 mg PO BEDTIME [facility] Last Admin: 12/03/19 20:30 Dose: 15 mg Documented by: Atorvastatin Calcium (Lipitor) 20 mg PO DAILY [facility] Last Admin: 12/04/19 08:38 Dose: 20 mg Documented by: Dexamethasone (Dexamethasone) 6 mg PO DAILY [facility] Last Admin: 12/04/19 08:39 Dose: 6 mg Documented by: Duloxetine HCl (Cymbalta) 60 mg PO DAILY [facility] Last Admin: 12/04/19 08:38 Dose: 60 mg Documented by: Enoxaparin Sodium (Lovenox) 40 mg SUBCUT Q24H [facility] Last Admin: 12/04/19 11:43 Dose: 40 mg Documented by: Remdesivir 100 mg/ Sodium (Chloride) 100 mls @ 100 mls/hr IV Q24H [facility] Stop: 12/07/19 13:29 Last Admin: 12/04/19 11:44 Dose: 100 mls/hr Documented by: Pantoprazole Sodium 40 mg/ (Sodium Chloride) 10 mls @ 300 mls/hr IV Q24H [facility] Last Admin: 12/04/19 13:25 Dose: 300 mls/hr Documented by: Levofloxacin/Dextrose 750 mg/ (Premix) 150 mls @ 100 mls/hr IV Q24H [facility] Last Admin: 12/03/19 19:51 Dose: 100 mls/hr Documented by: Levothyroxine Sodium (Synthroid) 100 mcg PO ACBREAKFAST [facility] Last Admin: 12/04/19 11:43 Dose: 100 mcg Documented by: Ondansetron HCl (Zofran Odt) 4 mg PO Q4H PRN PRN Reason: nausea, able to take PO Discontinued Medications Albuterol/Ipratropium (Combivent Respimat) 2 gm INH Q4H PRN PRN Reason: Dyspnea Last Admin: 12/03/19 14:39 Dose: 1 puff Documented by: Albuterol/Ipratropium (Duoneb 3.0-0.5 Mg/3 Ml) 3 ml NEB Q4HRRT [facility] Albuterol/Ipratropium (Combivent Respimat) 2 gm INH Q4H [facility] Last Admin: 12/03/19 16:37 Dose: Not Given Documented by: Fentanyl (Sublimaze) Confirm Administered Dose 100 mcg .ROUTE .STK-MED ONE Stop: 12/04/19 14:12 Furosemide (Lasix) 20 mg IVPUSH ONETIME ONE Stop: 12/04/19 14:01 Last Admin: 12/04/19 14:42 Dose: 20 mg Documented by: Remdesivir 200 mg/ Sodium (Chloride) 250 mls @ 250 mls/hr IV ONETIME ONE Stop: 12/03/19 12:27 Last Admin: 12/03/19 13:25 Dose: 250 mls/hr Documented by: Furosemide 20 mg/ Sodium (Chloride) 52 mls @ 100 mls/hr IV ASDIRECTED ONE Stop: 12/04/19 16:01 Propofol (Diprivan 100 Ml) Confirm Administered Dose 100 mls @ as directed .ROUTE .STK-MED ONE Stop: 12/04/19 14:13 Iopamidol (Isovue Multipack-370 (76%)) 75 ml IVPUSH ONETIME STA Stop: 12/03/19 16:32 Last Admin: 12/03/19 16:35 Dose: 75 ml Documented by: Midazolam HCl (Versed 1 Mg/Ml) Confirm Administered Dose 2 mg .ROUTE .STK-MED ONE Stop: 12/04/19 14:12 Propofol (Diprivan 20 Ml) Confirm Administered Dose 200 mg .ROUTE .STK-MED ONE Stop: 12/04/19 14:12 Rocuronium [place] (Rocuronium [place]) Confirm Administered Dose 100 mg .ROUTE .STK-MED ONE Stop: 12/04/19 14:23 <Bailey Trejo - Last Filed: 12/06/19 13:02> Discharge Summary - Hospital Course Free Text/Narrative:: I have seen and evaluated the patient and agree with the residents note unless specified in my note - Referral to Home Health Primary Care Physician: Ananda Carreon MD - Patient Summary/Data Consults: Consultations 12/03/19 13:05 Respiratory Care Assess and Treatment [CONS] Routine - Patient Data Vitals - Most Recent: Last Vital Signs Temp 37.1 C 12/04/19 16:00 Pulse 89 12/04/19 14:40 Resp 18 12/04/19 16:00 BP 132/77 12/04/19 16:00 Pulse Ox 86 L 12/04/19 16:00 Med Orders - Current: Current Medications Discontinued Medications Albuterol/Ipratropium (Combivent Respimat) 2 gm INH Q4H PRN PRN Reason: Dyspnea Last Admin: 12/03/19 14:39 Dose: 1 puff Documented by: Albuterol/Ipratropium (Duoneb 3.0-0.5 Mg/3 Ml) 3 ml NEB Q4HRRT [facility] Albuterol/Ipratropium (Combivent Respimat) 2 gm INH Q4H [facility] Last Admin: 12/03/19 16:37 Dose: Not Given Documented by: Albuterol/Ipratropium (Combivent Respimat) 0 gm INH Q4HRRT [facility] Last Admin: 12/04/19 13:15 Dose: 1 puff Documented by: Aripiprazole (Abilify) 15 mg PO BEDTIME [facility] Last Admin: 12/03/19 20:30 Dose: 15 mg Documented by: Atorvastatin Calcium (Lipitor) 20 mg PO DAILY [facility] Last Admin: 12/04/19 08:38 Dose: 20 mg Documented by: Dexamethasone (Dexamethasone) 6 mg PO DAILY [facility] Last Admin: 12/04/19 08:39 Dose: 6 mg Documented by: Duloxetine HCl (Cymbalta) 60 mg PO DAILY [facility] Last Admin: 12/04/19 08:38 Dose: 60 mg Documented by: Enoxaparin Sodium (Lovenox) 40 mg SUBCUT Q24H [facility] Last Admin: 12/04/19 11:43 Dose: 40 mg Documented by: Fentanyl (Sublimaze) Confirm Administered Dose 100 mcg .ROUTE .STK-MED ONE Stop: 12/04/19 14:12 Furosemide (Lasix) 20 mg IVPUSH ONETIME ONE Stop: 12/04/19 14:01 Last Admin: 12/04/19 14:42 Dose: 20 mg Documented by: Remdesivir 100 mg/ Sodium (Chloride) 100 mls @ 100 mls/hr IV Q24H [facility] Stop: 12/07/19 13:29 Last Admin: 12/04/19 11:44 Dose: 100 mls/hr Documented by: Remdesivir 200 mg/ Sodium (Chloride) 250 mls @ 250 mls/hr IV ONETIME ONE Stop: 12/03/19 12:27 Last Admin: 12/03/19 13:25 Dose: 250 mls/hr Documented by: Pantoprazole Sodium 40 mg/ (Sodium Chloride) 10 mls @ 300 mls/hr IV Q24H NEETU Last Admin: 12/04/19 13:25 Dose: 300 mls/hr Documented by: Levofloxacin/Dextrose 750 mg/ (Premix) 150 mls @ 100 mls/hr IV Q24H NEETU Last Admin: 12/03/19 19:51 Dose: 100 mls/hr Documented by: Furosemide 20 mg/ Sodium (Chloride) 52 mls @ 100 mls/hr IV ASDIRECTED ONE Stop: 12/04/19 16:01 Propofol (Diprivan 100 Ml) Confirm Administered Dose 100 mls @ as directed .ROUTE .STK-MED ONE Stop: 12/04/19 14:13 Fentanyl 2,500 mcg/ Sodium (Chloride) 250 mls @ 10 mls/hr IV TITRATE NEETU; Protocol Last Admin: 12/04/19 15:34 Dose: 150 mcg/hr, 15 mls/hr Documented by: Propofol (Diprivan 100 Ml) 100 mls @ 4.124 mls/hr IV TITRATE NEETU; Protocol Propofol (Diprivan 100 Ml) Confirm Administered Dose 100 mls @ as directed .ROUTE .STK-MED ONE Stop: 12/04/19 16:08 Iopamidol (Isovue Multipack-370 (76%)) 75 ml IVPUSH ONETIME STA Stop: 12/03/19 16:32 Last Admin: 12/03/19 16:35 Dose: 75 ml Documented by: Levothyroxine Sodium (Synthroid) 100 mcg PO ACBREAKFAST NEETU Last Admin: 12/04/19 11:43 Dose: 100 mcg Documented by: Midazolam HCl (Versed 1 Mg/Ml) Confirm Administered Dose 2 mg .ROUTE .STK-MED ONE Stop: 12/04/19 14:12 Ondansetron HCl (Zofran Odt) 4 mg PO Q4H PRN PRN Reason: nausea, able to take PO Propofol (Diprivan 20 Ml) Confirm Administered Dose 200 mg .ROUTE .STK-MED ONE Stop: 12/04/19 14:12 Rocuronium [place] (Rocuronium [place]) Confirm Administered Dose 100 mg .ROUTE .STK-MED ONE Stop: 12/04/19 14:23
[2019-12-04] MEDS ORDERED: fentaNYL 2,500 MCG in Sodium Chloride 0.9% 200 ML IV SCH (15:15)
[2019-12-04] MEDS ORDERED: propofoL 100 ML IV SCH (15:15)
[2019-12-04] MEDS ORDERED: Furosemide 20 MG in Sodium Chloride 0.9% 50 ML IV ONE (15:30)
--- NOTE | 2019-12-04 15:31 | CR ---
INDICATION: Post intubation TECHNIQUE: Single AP view chest COMPARISON: Single view chest December 03, [address] angiogram December 03, 2019 FINDINGS: There are overall increased interstitial and airspace opacities throughout the bilateral hemithoraces likely representing worsening pulmonary edema and/or multifocal infiltrates. There is satisfactory position of nasogastric and endotracheal tubes. The bony thorax is grossly intact. There is no pneumothorax. IMPRESSION: Satisfactory position of endotracheal and enteric tubes with overall diffusely increased interstitial and airspace opacities likely representing worsening edema and/or multifocal infiltrates. Dictated by Josh Salinas MD @ Dec 04 2019 3:27PM Signed by Dr. Josh Salinas @ Dec 04 2019 3:30PM
--- NOTE | 2019-12-04 16:53 | CR ---
Indication: Tube adjustment Technique: Single AP view abdomen Comparison: Single-view chest 12/04/2019 Findings: There is demonstration of nasogastric tube with the tip just beyond the gastroesophageal junction, recommend advancement into the distal gastric lumen approximately 10 centimeters. There is a nonobstructive bowel gas pattern. There is no evidence of intra-abdominal free air or pathologic calculus. Impression: Demonstration of nasogastric tube tip just beyond the gastroesophageal junction, recommend advancement 10 centimeters into the distal gastric antrum. Dictated by Josh Salinas MD @ Dec 04 2019 4:50PM Signed by Dr. Josh Salinas @ Dec 04 2019 4:52PM
--- NOTE | 2019-12-04 16:55 | CR ---
Indication: NG tube adjustment Technique: Single AP view Comparison: Single view abdomen December 04, 2019 Findings: There is satisfactory interval repositioning of nasogastric tube with the tip now in the distal gastric antrum. Nonobstructive bowel gas pattern. No pathologic calcification. Impression: Satisfactory interval repositioning of nasogastric tube with the tip now in the distal gastric antrum. Dictated by Josh Salinas MD @ Dec 04 2019 4:52PM Signed by Dr. Josh Salinas @ Dec 04 2019 4:53PM
--- NOTE | 2019-12-04 16:57 | CR ---
Indication: NG tube adjustment Technique: Single AP view abdomen Comparison: Single abdomen December 04, 2019 Findings: There has been interval retraction of the nasogastric tube now with the side port at the gastroesophageal junction, recommend advancement back into the distal gastric antrum. Nonobstructive bowel gas pattern. Impression: Interval retraction of nasogastric tube from appropriate position in the distal gastric antrum. Consider once again re-advancing the tube into the distal gastric antrum. Dictated by Josh Salinas MD @ Dec 04 2019 4:54PM Signed by Dr. Josh Salinas @ Dec 04 2019 4:56PM
== END 2019-12-04 16:30 | DRG 137 ==
LOC: MW.MS 11:24 → MW.ICU 18:46
PROVIDERS: ADMIT Internal Medicine; ATTEND Internal Medicine
PROC: XW033E5 Introduction of Remdesivir Anti-infective into Peripheral Vein, Percutaneous Approach, New Technology Group 5 (ICD-10-PCS; principal; 2019-12-03)
PROC: XW13325 Transfusion of Convalescent Plasma (Nonautologous) into Peripheral Vein, Percutaneous Approach, New Technology Group 5 (ICD-10-PCS; 2019-12-03)
PROC: 5A0945A Assistance with Respiratory Ventilation, 24-96 Consecutive Hours, High Flow/Velocity Cannula (ICD-10-PCS; 2019-12-03)
PROC: 5A09357 Assistance with Respiratory Ventilation, Less than 24 Consecutive Hours, Continuous Positive Airway Pressure (ICD-10-PCS; 2019-12-03)
PROC: 0BH17EZ Insertion of Endotracheal Airway into Trachea, Via Natural or Artificial Opening (ICD-10-PCS; 2019-12-04)
PROC: 0D9670Z Drainage of Stomach with Drainage Device, Via Natural or Artificial Opening (ICD-10-PCS; 2019-12-04)
DX: U07.1 COVID-19 (principal); J96.01 Acute respiratory failure with hypoxia; E78.5 Hyperlipidemia, unspecified; E03.9 Hypothyroidism, unspecified; E87.1 Hypo-osmolality and hyponatremia; E87.8 Other disorders of electrolyte and fluid balance, not elsewhere classified; E78.00 Pure hypercholesterolemia, unspecified; M19.90 Unspecified osteoarthritis, unspecified site; F41.9 Anxiety disorder, unspecified; F32.9 Major depressive disorder, single episode, unspecified; Z90.89 Acquired absence of other organs; Z79.899 Other long term (current) drug therapy; Z79.890 Hormone replacement therapy; Z79.82 Long term (current) use of aspirin
CPT/HCPCS: 31500; 36415; 36430; 71045; 71045-26; 71275; 71275-26; 74018; 74018-26; 80048; 83735; 84100; 85025; 85610; 85730; 86850; 86900; 86901; 94002; 94640; 94660; 99222; 99239; A9270-GY; C9113; J0330; J1650; J1940; J1956; J2250; J2704; J3010; J7050; J8540; P9017; Q9967